=== PATIENT | female | born 1970 | race Caucasian/White ===

== ENCOUNTER → 2024-07-02 14:44 | Outpatient (REF) | payer OTHER, SELFPAY | LOC: HWWDC 14:44 | PROVIDERS: ATTENDING PHYSICIAN Obstetrics & Gynecology; FAMILY PHYSICIAN Nurse Practitioner Family | DX: Z12.31 Encounter for screening mammogram for malignant neoplasm of breast (principal) | CPT/HCPCS: 77063; 77067 ==

== ENCOUNTER → 2025-01-11 10:35 | Outpatient (REF) | payer OTHER, SELFPAY | LOC: RAD 10:35 | PROVIDERS: ATTENDING PHYSICIAN Nurse Practitioner Family; FAMILY PHYSICIAN Family Medicine | DX: R05.3 Chronic cough (principal) | CPT/HCPCS: 71046 ==

== ENCOUNTER → 2025-01-12 15:55 | Outpatient (REF) | payer OTHER, SELFPAY | LOC: HWRAD 15:55 | PROVIDERS: ATTENDING PHYSICIAN Nurse Practitioner Family | DX: R93.89 Abnormal findings on diagnostic imaging of other specified body structures (principal) | CPT/HCPCS: 76700 ==

== ENCOUNTER → 2025-01-17 13:46 | Outpatient (REF) | payer OTHER, SELFPAY | LOC: HWRCS 13:46 | PROVIDERS: ATTENDING PHYSICIAN Nurse Practitioner Family | DX: R93.89 Abnormal findings on diagnostic imaging of other specified body structures (principal) | CPT/HCPCS: 93306 ==

== ENCOUNTER → 2025-01-21 14:08 | Outpatient (REF) | payer OTHER, SELFPAY | LOC: HWRAD 14:08 | PROVIDERS: ATTENDING PHYSICIAN Family Medicine | DX: J32.9 Chronic sinusitis, unspecified (principal) | CPT/HCPCS: 70486 ==

== ENCOUNTER → 2025-03-30 14:14 | Outpatient (REF) | payer OTHER, SELFPAY | LOC: DHSLP 14:14 | PROVIDERS: ATTENDING PHYSICIAN Family Medicine; FAMILY PHYSICIAN Nurse Practitioner Family | DX: G47.33 Obstructive sleep apnea (adult) (pediatric) (principal); R06.83 Snoring | CPT/HCPCS: 95800 ==

== ENCOUNTER → 2025-08-02 12:03 | Outpatient (REF) | payer OTHER, SELFPAY | LOC: HWWDC 12:03 | PROVIDERS: ATTENDING PHYSICIAN Obstetrics & Gynecology; FAMILY PHYSICIAN Family Medicine | DX: Z12.31 Encounter for screening mammogram for malignant neoplasm of breast (principal) | CPT/HCPCS: 77063; 77067 ==